=== PATIENT | male | born 1975 | race Caucasian/White ===

== ENCOUNTER 2023-12-15 21:43 | Emergency (ER) | payer SELFPAY ==
[~2023-12-15] VITALS: Ht 165.1 cm; Wt 70.0 kg
[2023-12-15 21:51] VITALS: O2SAT 100
[2023-12-15] MEDS: ACETAMINOPHEN 325MG TABLET PO STA (22:33)
[2023-12-15] MEDS: TETANUS, DIPHTHERIA, PERTUSSIS VAC/PF 0.5ML (>10YR OLD) IM ONE (22:45)
[2023-12-15] MEDS: LORAZEPAM 2MG/ML INJ IV ONE (22:45)
[2023-12-15] MEDS: SODIUM CHLORIDE 0.9% 1,000 ML IV ONE (22:45)
[2023-12-15 23:41] LABS: BASOPHILS % 0.8 % (0.0-2.0); EOSINOPHILS % 1.7 % (0.0-5.0); HEMOGLOBIN. 12.1 g/dL (14.0-18.0); LYMPHOCYTES % 48.8 % (20.0-50.0); MEAN CORPUSCULAR HEMOGLOBIN 32.8 pg (28.0-32.0); MEAN CORPUSCULAR HGB CONC 33.6 g/dL (31.0-37.0); MEAN CORPUSCULAR VOLUME 97.8 fL (80.0-94.0); MEAN PLATELET VOLUME 7.6 fl (7.4-10.4); MONOCYTES % 12.5 % (2.0-8.0); NEUTROPHILS % 36.2 % (40.0-76.0); PLATELET 185 x1000/uL (130-400); RED BLOOD CELL COUNT 3.68 mill/uL (4.7-6.1); RED CELL DISTRIBUTION WIDTH 17.2 % (11.6-14.6)
[2023-12-15 23:48] LABS: CHLORIDE 106 mEq/L (98-107); POTASSIUM 3.9 mEq/L (3.5-5.1); SODIUM 143 mEq/L (136-145)
[2023-12-15 23:49] LABS: CALCIUM 7.8 mg/dL (8.7-10.4); CARBON DIOXIDE 29 mEq/L (21-32)
[2023-12-15 23:54] LABS: CREATININE 0.7 mg/dL (0.6-1.3); GLUCOSE 103 mg/dL (70-105); UREA NITROGEN BLOOD 9 mg/dL (9-23)
[2023-12-15 23:56] LABS: ALANINE AMINOTRANSFERASE 103 IU/L (10-49); ALBUMIN 4.4 g/dL (3.2-4.8); ASPARTATE AMINOTRANSFERASE 100 IU/L (<34); BILIRUBIN TOTAL 0.5 mg/dL (0.1-1.0); PROTEIN TOTAL 7.1 g/dL (6.0-8.3)
[2023-12-16 00:05] LABS: ETHANOL BLOOD 416 mg/dL (<10)
[2023-12-16] MEDS: ACETAMINOPHEN 325MG TABLET PO NR (00:44)
[2023-12-16] MEDS: AMOXICILLIN 500 MG CAPSULE PO ONE (01:15)
[2023-12-16] MEDS ORDERED: AMOX-494 MT (02:08)
[2023-12-16] MEDS ORDERED: ACET-2708 MT (02:08)
[2023-12-16 08:18] VITALS: BP 144/83; PULSE 100; RESP 20; TEMP 98.7
== END 2023-12-16 08:20 | disposition home or self-care (01) ==
LOC: ER 21:43
DX: S00.432A Contusion of left ear, initial encounter (principal); H72.92 Unspecified perforation of tympanic membrane, left ear; F10.129 Alcohol abuse with intoxication, unspecified; Y08.89XA Assault by other specified means, initial encounter; Y93.89 Activity, other specified; Y92.89 Other specified places as the place of occurrence of the external cause; Y99.8 Other external cause status; Y90.8 Blood alcohol level of 240 mg/100 ml or more
CPT/HCPCS: 80053; 80320; 85025; 36415; 70450; 70486; 72125; 90471; 96361; 96374; 99285; 90715; J7030; J2060; G0480